=== PATIENT | male | born 1970 | race Caucasian/White ===

== ENCOUNTER → 2017-04-22 | Outpatient (CLI) | payer OTHER | LOC: BMCIMAGING 12:42 | PROVIDERS: ATTEND Physician Assistant | DX: M48.02 Spinal stenosis, cervical region (principal) ==

== ENCOUNTER → 2017-06-28 | Outpatient (CLI) | payer OTHER ==
[~2017-06-28] MED LIST: GADOBUTROL 10 ML VIAL IVP ONE
== END ==
LOC: FIMAGING 14:45
PROVIDERS: ATTEND Psychiatry & Neurology Neurology
DX: R94.02 Abnormal brain scan (principal); R20.2 Paresthesia of skin; M48.02 Spinal stenosis, cervical region; M46.92 Unspecified inflammatory spondylopathy, cervical region
CPT/HCPCS: A9585

== ENCOUNTER → 2017-07-06 | Outpatient (CLI) | payer OTHER | LOC: FIMAGING 14:25 | PROVIDERS: ATTEND Psychiatry & Neurology Neurology | DX: R20.2 Paresthesia of skin (principal) | CPT/HCPCS: A9585 ==

== ENCOUNTER → 2017-08-28 | Outpatient (CLI) | payer OTHER | LOC: FIMAGING 19:38 | PROVIDERS: ATTEND Psychiatry & Neurology Neurology | DX: M51.46 Schmorl's nodes, lumbar region (principal); M53.3 Sacrococcygeal disorders, not elsewhere classified ==

== ENCOUNTER → 2017-08-29 | Outpatient (CLI) | payer OTHER ==
--- NOTE | 2017-08-29 12:20 | CPEEG ---
[f rep st] ELECTROENCEPHALOGRAM ELECTROENCEPHALOGRAM DATE OF STUDY: 08/29/2017 INTERPRETATION: Normal EEG during wakefulness and sleep. There were no potentially epileptogenic ab normalities present during the recording. REPORT: This EEG contains 9-10 Hz alpha activity to the posterior head regions. There was no abnorm al activation at rest, during photic stimulation or hyperventilation. The patient became drowsy and fell asleep during the study. During drowsiness, the patient had the nonspecific activation of bitem poral wicket waves. These are of no clinical significance. There was no abnormal activation during drowsiness, sleep, or during times of arousal. /[id number]/MODL
== END ==
LOC: FCPNEURO 07:44
PROVIDERS: ATTEND Psychiatry & Neurology Neurology
DX: R25.9 Unspecified abnormal involuntary movements (principal)

== ENCOUNTER → 2017-10-14 | Outpatient (CLI) | payer OTHER | LOC: FIMAGING 15:17 | PROVIDERS: ATTEND Psychiatry & Neurology Neurology | DX: R94.02 Abnormal brain scan (principal) | CPT/HCPCS: A9585 ==

== ENCOUNTER 2018-04-12 17:20 | Emergency (ER) | payer OTHER ==
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
[2018-04-12] MEDS ORDERED: HYDROCOD/APAP 5/325 PREPACK#6 BTL TAKEHOME ONE (18:28)
[2018-04-12 18:32] VITALS: BP 122/85
== END 2018-04-12 18:37 | disposition home or self-care (01) ==
PROC: 2W29X4Z Dressing of Left Upper Extremity using Bandage (ICD-10-PCS; principal; 2018-04-12)
DX: T23.002A Burn of unspecified degree of left hand, unspecified site, initial encounter (principal); X15.8XXA Contact with other hot household appliances, initial encounter; Y93.G3 Activity, cooking and baking; Y92.009 Unspecified place in unspecified non-institutional (private) residence as the place of occurrence of the external cause; Y99.9 Unspecified external cause status